=== PATIENT | male | born 1990 | race Caucasian/White ===

== ENCOUNTER 2022-07-31 11:10 | Outpatient (REF) | payer MEDICAID, SELFPAY ==
--- NOTE | ~2022-07-31 | XR_ITS ---
EXAMINATION: XR KNEE, RIGHT XR KNEE, LEFT XR KNEE AP STANDING CLINICAL INFORMATION: Pain. COMPARISON: None TECHNIQUE: Lateral and axial of the right knee are obtained. Lateral and axial views of the left knee are obtained. AP bilateral standing view of the knees was obtained. FINDINGS: RIGHT KNEE: There has been a prior ACL repair. The lateral and medial joint space compartments are well-maintained. There is mild narrowing of the patellofemoral compartment, in particular laterally. There is mild peripheral osteophyte formation of the medial and patellofemoral compartments. No fracture or joint effusion. Alignment is anatomic. Joint spaces are well maintained. No abnormal soft tissue calcification. LEFT KNEE: Bones and soft tissues are normal. No fracture or joint effusion. Alignment is anatomic. Joint spaces are well maintained. No abnormal soft tissue calcification. XR/XR knee LT 3V IMPRESSION: 1. There has been a prior right knee ACL repair. 2. There is mild osteoarthritic change of the right patellofemoral compartment, and minimal osteoarthritic change is seen of the right medial joint space compartment. 3. Unremarkable left knee radiographs.
--- NOTE | ~2022-07-31 | XR_ITS ---
EXAMINATION: XR KNEE, RIGHT XR KNEE, LEFT XR KNEE AP STANDING CLINICAL INFORMATION: Pain. COMPARISON: None TECHNIQUE: Lateral and axial of the right knee are obtained. Lateral and axial views of the left knee are obtained. AP bilateral standing view of the knees was obtained. FINDINGS: RIGHT KNEE: There has been a prior ACL repair. The lateral and medial joint space compartments are well-maintained. There is mild narrowing of the patellofemoral compartment, in particular laterally. There is mild peripheral osteophyte formation of the medial and patellofemoral compartments. No fracture or joint effusion. Alignment is anatomic. Joint spaces are well maintained. No abnormal soft tissue calcification. LEFT KNEE: Bones and soft tissues are normal. No fracture or joint effusion. Alignment is anatomic. Joint spaces are well maintained. No abnormal soft tissue calcification. XR/XR knee RT 3V IMPRESSION: 1. There has been a prior right knee ACL repair. 2. There is mild osteoarthritic change of the right patellofemoral compartment, and minimal osteoarthritic change is seen of the right medial joint space compartment. 3. Unremarkable left knee radiographs.
--- NOTE | ~2022-07-31 | XR_ITS ---
EXAMINATION: XR KNEE, RIGHT XR KNEE, LEFT XR KNEE AP STANDING CLINICAL INFORMATION: Pain. COMPARISON: None TECHNIQUE: Lateral and axial of the right knee are obtained. Lateral and axial views of the left knee are obtained. AP bilateral standing view of the knees was obtained. FINDINGS: RIGHT KNEE: There has been a prior ACL repair. The lateral and medial joint space compartments are well-maintained. There is mild narrowing of the patellofemoral compartment, in particular laterally. There is mild peripheral osteophyte formation of the medial and patellofemoral compartments. No fracture or joint effusion. Alignment is anatomic. Joint spaces are well maintained. No abnormal soft tissue calcification. LEFT KNEE: Bones and soft tissues are normal. No fracture or joint effusion. Alignment is anatomic. Joint spaces are well maintained. No abnormal soft tissue calcification. XR/XR knee standing BI IMPRESSION: 1. There has been a prior right knee ACL repair. 2. There is mild osteoarthritic change of the right patellofemoral compartment, and minimal osteoarthritic change is seen of the right medial joint space compartment. 3. Unremarkable left knee radiographs.
--- NOTE | ~2022-07-31 | XR_ITS ---
EXAMINATION: XR CHEST 2 VIEWS CLINICAL INFORMATION: Clubbing of fingers. COMPARISON: None. TECHNIQUE: Frontal and lateral views of the chest were obtained. FINDINGS: The heart, great vessels, pulmonary vasculature and mediastinum are normal. The lungs show no focal infiltrate, effusion or pneumothorax. There is no acute osseous abnormality. XR/XR chest 2V IMPRESSION: No active cardiopulmonary disease.
[2022-07-31 12:22] LABS: MANUAL DIFF FLAG NO
[2022-07-31 12:35] LABS: Basophils Absolute Auto 0.1 X10*3/uL (0.0-0.2); Basophils Percent Auto 1.6 % (0-2); Eosinophils Absolute Auto 0.1 X10*3/uL (0.0-0.4); Eosinophils Percent Auto 1.5 % (0-4); Hematocrit 43.9 % (42.0-52.0); Hemoglobin 14.5 g/dl (14.0-18.0); Imm Gran Abs Auto 0.01 X10*3/uL (0.00-0.03); Imm Gran Pct Auto 0.2 % (0.0-0.4); Lymphocytes Absolute Auto 2.1 X10*3/uL (1.2-4.9); Lymphocytes Percent Auto 34.6 % (20-40); Mean Corpuscular Hemoglobin 27.8 pg (27.0-33.0); Mean Corpuscular Volume 84.1 fL (80.0-98.0); Monocytes Absolute Auto 0.5 X10*3/uL (0.1-1.2); Monocytes Percent Auto 8.3 % (2-11); Neutrophils Absolute Auto 3.3 x10*3/uL (2.0-8.3); Neutrophils Percent Auto 53.8 % (45-73); Platelet Count 374 X10*3/uL (160-400); Red Blood Count 5.22 X10*6/uL (4.60-5.80); Red Cell Distribution Width 12.8 % (11.0-16.0); White Blood Count 6.1 X10*3/uL (4.8-10.8)
[2022-07-31 13:01] LABS: Alanine Aminotransferase 14 U/L (0-40); Albumin Level 4.6 g/dL (3.5-5.0); Alkaline Phosphatase 54 U/L (39-117); Anion Gap 12 (12-20); Aspartate Amino Transferase 16 U/L (5-37); Bilirubin Total 0.5 mg/dL (0.0-1.0); Blood Urea Nitrogen 11 mg/dL (9-16); C Reactive Protein < 0.10 mg/dL (< or = 0.50); Calcium 9.8 mg/dL (8.4-10.2); Carbon Dioxide 26 mmol/L (22-29); Chloride 105 mmol/L (96-108); Estimated Glomerular Filt Rate > 60; Glucose Random 98 mg/dL (60-115); Potassium 4.5 mmol/L (3.3-5.1); Sodium 138 mmol/L (135-145); Total Protein 6.9 g/dL (6.5-8.0)
[2022-07-31 13:29] LABS: Erythrocyte Sedimentation Rate 2 MM/HR (0-15)
[2022-07-31 15:24] LABS: Appearance Urine Clear; Color Urine Yellow; Glucose Urine UA Negative (Negative); Leukocyte Esterase Urine Negative (Negative); Nitrite Urine Negative (Negative); PH 5.5 (5.0-9.0); Urine Blood Negative (Negative); Urine Ketones Negative (Negative); Urine Protein Negative (Neg-Trace)
[2022-07-31 15:30] LABS: Bacteria Urine None Seen (None Seen); Hyaline Casts Urine 0-2 /LPF (0-2); RBC Urine 0-2 /HPF (0-2); Squamous Epithelial Cell Urine 0-2 /HPF (0-2); WBC Urine 0-5 /HPF (0-5)
[2022-07-31 15:42] LABS: Creatinine Urine 138.86 mg/dL; Protein/Creatinine Ratio, Ur 0.06 (<0.2); Total Protein Urine Random 8 mg/dL (<12)
[2022-08-01 20:54] LABS: Complement C3 117 mg/dL (82-185)
[2022-08-02 13:59] LABS: Anti DNA DS Antibody <1 IU/mL; Antibody to SS-A Antigen <1.0 NEG AI (<1.0 NEG); Antibody to SS-B Antigen <1.0 NEG AI (<1.0 NEG); SM/Ribonucleoprotein Ab <1.0 NEG AI (<1.0 NEG); Smith Protein <1.0 NEG AI (<1.0 NEG)
[2022-08-06 18:53] LABS: Cyclic Citrullinated Peptide <16 UNITS
[2022-08-07 15:18] LABS: DNAds, Crithidia Antibody Negative (Negative)
== END 2022-07-31 11:11 | disposition home or self-care (01) ==
LOC: HO.XRAY 11:10
PROVIDERS: PCP Physician Assistant; Visit Provider Student in an Organized Health Care Education/Training Program
DX: R76.8 Other specified abnormal immunological findings in serum (principal); M32.9 Systemic lupus erythematosus, unspecified; M25.562 Pain in left knee; M25.561 Pain in right knee; M25.541 Pain in joints of right hand; M25.572 Pain in left ankle and joints of left foot; M25.571 Pain in right ankle and joints of right foot; R68.3 Clubbing of fingers; Z79.899 Other long term (current) drug therapy
CPT/HCPCS: 36415; 71046; 73562; 73564; 73565; 80053; 81001; 84156; 85025; 85652; 86140; 86160; 86200; 86225; 86235; 86255; 99202

== ENCOUNTER → 2022-11-26 14:53 | Outpatient (BNVA) | payer OTHER, SELFPAY | PROVIDERS: PCP Physician Assistant; Visit Provider Student in an Organized Health Care Education/Training Program | DX: R76.8 Other specified abnormal immunological findings in serum (principal) | CPT/HCPCS: 99212 ==